=== PATIENT | male | born 1975 | race African-American/Black ===

== ENCOUNTER 2016-07-14 16:40 | Emergency (ER) | payer OTHER ==
[~2016-07-14] VITALS: Ht 185.4 cm; Wt 131.6 kg
[2016-07-14 16:46] VITALS: TEMP 37.6; Ht 185.4 cm; Wt 131.6 kg
[2016-07-14] MEDS ORDERED: FLEC100T21 PO (17:03)
[2016-07-14] MEDS ORDERED: METO25TA56 PO (17:03)
[2016-07-14] MEDS ORDERED: CLR10 PO (17:03)
[2016-07-14] MEDS ORDERED: CHOL1CAP67 PO (17:03)
[2016-07-14] MEDS ORDERED: FAMO40TA6 PO (17:03)
[2016-07-14] MEDS ORDERED: IBUP-1050 PO (17:03)
--- NOTE | 2016-07-14 17:08 | EMERGENCY ROOM VISIT NOTE ---
History Report prepared by Dayana: Sid Ribeiro Under the Supervision of: Dr. Sarah Jain M.D. First contact with patient: 16:43 Chief Complaint: KNEEPAIN Stated Complaint: R KNEE PAIN INJURY History of Present Illness The patient is a 40 year old male who presents to the Emergency Room with complaints of sudden left knee pain occurring last night. The patient currently rates his discomfort as a 1/10 in severity. The patient states that he was going up the stairs, and he twisted his leg on the first step. The patient states that he twisted his knee, and it buckled under him. He states that he fell backwards and hit his back. Source of History: patient Onset: last night Position: knee (left) Symptom Intensity: 110 Timing: other Review of Systems See HPI for pertinent positives & negatives. A total of 6 systems reviewed and were otherwise negative. Past Medical & Surgical Atrial fibrillation Obstructive sleep apnea Social History Smoking Status: Never Smoker Marital Status: Housing Status: lives with family Occupation Status: employed Current/Historical Medications Scheduled Cholecalciferol (Vitamin D-3), 1 TAB PO DAILY Flecainide (Tambocor), 100 MG PO BID Metoprolol Tartrate (Lopressor) (Lopressor), 25 MG PO BID Scheduled PRN Famotidine (Pepcid), 40 MG PO DAILY PRN for Heartburn Hydrocodone/Acetaminophen 5MG/325MG (Rogers 5MG/325MG), 1-2 TABLETS PO Q6 PRN for Pain Ibuprofen (Advil), 400-600 MG PO Q6H PRN for Pain Loratadine (Claritin), 10 MG PO DAILY PRN for PRN Allergies Coded Allergies: No Known Allergies (Unverified , 07/14/16) Physical Exam Vital Signs Date Time Temp Pulse Resp B/P Pulse Ox O2 Delivery O2 Flow Rate FiO2 07/14/16 19:38 71 20 142/85 100 07/14/16 16:46 37.6 79 18 139/80 95 Room Air Physical Exam Vital signs reviewed. General: Well-appearing male, in no significant distress. Musculoskeletal: Large left knee effusion. No instability, laxity, or pain to valgus or varus stress. Negative anterior drawer. Neurologic: Patient awake alert and oriented x 3 Skin: Warm, dry, no rash Medical Decision & Procedures ER Provider Diagnostic Interpretation: MRI results as stated below per my review and radiologist interpretation: MRI OF THE LEFT KNEE WITHOUT CONTRAST CLINICAL HISTORY: Left knee swelling. Pivot injury yesterday. COMPARISON STUDY: None TECHNIQUE: Utilizing a 1.5 Sara magnet and dedicated coil, multiplanar, multiecho imaging of the left knee was performed without intravenous or intraarticular contrast. FINDINGS: There is a large left knee joint effusion with suspected lipohemarthrosis. Note is made of extensive edema within the lateral femoral condyle with an associated subchondral fracture with displacement of multiple osteochondral fragments. Note is made of 2 fragments anterior to the medial joint space that measure up to 1.4 cm. There is also a fragment along the medial aspect of the posterior cruciate ligament that measures 0.8 cm. There is a 1 cm fragment along the inferomedial aspect the patella that likely arises from the patella. The cruciate and collateral ligaments are intact. The medial meniscus, particularly the anterior horn, is diminutive but no meniscal tear is identified. There is a full-thickness defect within the lateral patellar cartilage that measures 1.1 cm in transverse dimension. There is no significant cartilage abnormality within the medial compartment. The medial retinaculum is attenuated and somewhat redundant. IMPRESSION: 1. Large left knee joint effusion with lipohemarthrosis. Extensive edema of the lateral femoral condyle with associated osteochondral injury with fracture and multiple displaced fragments within the joint space, as described above. In addition, there is osteochondral injury of the inferomedial aspect the patella and the lateral patellar cartilage. These findings suggest a recent lateral patellar dislocation and subsequent reduction. Attenuated medial retinaculum which is somewhat redundant. 2. Intact cruciate and collateral ligaments. 3. No meniscal tear. The anterior horn of the medial meniscus is diminutive but no tear is identified. Electronically signed by: Steve Leon M.D. 07/14/2016 6:46 PM Dictated Date/Time: 07/14/2016 6:28 PM Medications Administered Medications (Trade) Dose Ordered Sig/Taylor Route Start Time Stop Time Status Last Admin Dose Admin Acetaminophen/ Hydrocodone Bitart (Rogers 5/325mg Home Pack) 1 homepack UD ONCE PO 07/14/16 19:15 07/14/16 19:16 DC 07/14/16 19:17 1 HOMEPACK ED Course 1643: Past medical records reviewed. The patient was evaluated in room D5. A complete history and physical examination was performed. 1845: Buffered Lidocaine 1% Inj 20ml INFIL 1909: Upon reevaluation, the patient appeared to have improvement of his symptoms. I discussed findings with him. He verbalized agreement of the treatment plan. He was discharged home. 1914: Rogers 5/325mg 1 homepack PO Medical Decision Differential diagnosis: Etiologies such as fracture, dislocation, neurovascular compromise, compartment syndrome, soft tissue injury, as well as others were entertained. This patient was evaluated and appeared to be in no significant distress. Physical examination reveals a large left knee effusion. There is no appreciable laxity on exam. The patient has been ambulating on the leg today with a knee brace. He complains of moderate discomfort. MRI of the knee was performed to rule out soft tissue injury. The study is read as above and is concerning for a lateral femoral condyle fracture. Joint aspiration was performed at the bedside with approximately 60 mL of a dark blood return. I did speak with Dr. Talavera orthopedic surgery regarding the findings. He has recommended a knee immobilizer, nonweightbearing status and crutches. He will evaluate the patient first thing in the morning in the office. Patient is aware of the plan and agrees. His given a Rogers home pack as well as a prescription. He will ice and elevate as much as possible and return to the ER for worsening of symptoms or any medical concerns. Impression Primary Impression: Fracture of lateral condyle of femur Additional Impressions: Hemarthrosis, Cartilage tear Scribe Attestation The scribe's documentation has been prepared under my direction and personally reviewed by me in its entirety. I confirm that the note above accurately reflects all work, treatment, procedures, and medical decision making performed by me. Departure Information Dispostion Home / Self-Care Prescriptions Hydrocodone/Acetaminophen 5MG/325MG (Rogers 5MG/325MG) Tab 1-2 TABLETS PO Q6 Y for Pain, #30 TAB PRN PAIN Prov: Sarah Jain M.D. 07/14/16 Referrals RV. Sutton MD (PCP) Forms HOME CARE DOCUMENTATION FORM, IMPORTANT VISIT INFORMATION Patient Instructions A Signature Page, My [facility] Additional Instructions Diagnosis: Fracture of the lateral femoral condyle, patellar cartilage tear, hemarthrosis Knee immobilizer, ice and elevate as frequently as possible. Remain nonweightbearing on the left leg. Go to Dr. Talavera's office at 8:00 am for follow-up evaluation. Rogers one to 2 tabs every 6 hours as needed for pain. Do not drive or take Tylenol with this medication. Return to the emergency department for worsening of symptoms or any medical concerns.
[2016-07-14] MEDS ORDERED: XYLOCAINE 1%/SOD BICARB 20 ML VIAL INFIL ONE (18:45)
--- NOTE | 2016-07-14 18:48 | DIAGNOSTIC IMAGING REPORT ---
MRI OF THE LEFT KNEE WITHOUT CONTRAST CLINICAL HISTORY: Left knee swelling. Pivot injury yesterday. COMPARISON STUDY: None TECHNIQUE: Utilizing a 1.5 Sara magnet and dedicated coil, multiplanar, multiecho imaging of the left knee was performed without intravenous or intraarticular contrast. FINDINGS: There is a large left knee joint effusion with suspected lipohemarthrosis. Note is made of extensive edema within the lateral femoral condyle with an associated subchondral fracture with displacement of multiple osteochondral fragments. Note is made of 2 fragments anterior to the medial joint space that measure up to 1.4 cm. There is also a fragment along the medial aspect of the posterior cruciate ligament that measures 0.8 cm. There is a 1 cm fragment along the inferomedial aspect the patella that likely arises from the patella. The cruciate and collateral ligaments are intact. The medial meniscus, particularly the anterior horn, is diminutive but no meniscal tear is identified. There is a full-thickness defect within the lateral patellar cartilage that measures 1.1 cm in transverse dimension. There is no significant cartilage abnormality within the medial compartment. The medial retinaculum is attenuated and somewhat redundant. IMPRESSION: 1. Large left knee joint effusion with lipohemarthrosis. Extensive edema of the lateral femoral condyle with associated osteochondral injury with fracture and multiple displaced fragments within the joint space, as described above. In addition, there is osteochondral injury of the inferomedial aspect the patella and the lateral patellar cartilage. These findings suggest a recent lateral patellar dislocation and subsequent reduction. Attenuated medial retinaculum which is somewhat redundant. 2. Intact cruciate and collateral ligaments. 3. No meniscal tear. The anterior horn of the medial meniscus is diminutive but no tear is identified. Electronically signed by: Steve Leon M.D. 07/14/2016 6:46 PM Dictated Date/Time: 07/14/2016 6:28 PM
[2016-07-14] MEDS ORDERED: HYDR-5688 PO (19:12)
[2016-07-14] MEDS ORDERED: NORCO 5/325MG HOME PACK PO ONE (19:15)
[2016-07-14 19:38] VITALS: BP 142/85; PULSE 71; O2SAT 100
--- NOTE | 2016-07-17 12:33 | EDITING REQUIRED CODING QUERY ---
CODING QUERY To promote full compliance with coding requirements relating to patient care, provider participation is requested in all cases of ink grinder uncertainty. Please assist us with the question(s) below: Coding Question(s): There is documentation on the H&P of that Dr. Talavera was contacted and recommended a knee immobilizer. The H&P also documents that the patient has been ambulating on the leg today with a knee brace. There is an order for an immobilizer to be applied, however, there is no documentation on the H&P or in EMR showing that a knee immobilizer was placed. Please clarify below. ( ) Knee Immobilizer was not placed during this visit - the patient had an existing knee brace ( ) Knee Immobilizer was placed during this visit - Please specify the side below. (x ) Left side ( ) Right side ( ) Other: Specify Physician's Response(s): Thank you Rylee Chase Principal Diagnosis: "_that condition established after study, to be chiefly responsible for occasioning the admission of the patient to the hospital for care." Co-Existing Principal Diagnosis: "_when two or more diagnoses equally meet the criteria for principal diagnosis as determined by the circumstances of admission, diagnostic work up, and/or therapy provided, and the Alphabetic Index, Tabular List, or another coding guideline does not provide sequencing direction, any one of the diagnoses may be sequenced first." "When the physician has documented what appears to be a current diagnosis in the body of the record, but has not included the diagnosis in the final diagnostic statement, the physician should be asked whether the diagnosis should be added." (Source Coding [facility] 2 QTR90. p3-4)
== END 2016-07-14 19:39 | disposition home or self-care (01) ==
LOC: C.EDB 16:42 → C.EDD 19:39
DX: S72.422A Displaced fracture of lateral condyle of left femur, initial encounter for closed fracture (principal); I48.91 Unspecified atrial fibrillation; Z79.899 Other long term (current) drug therapy; W10.9XXA Fall (on) (from) unspecified stairs and steps, initial encounter; Y99.8 Other external cause status

== ENCOUNTER → 2017-09-18 | Outpatient (CLI) | payer OTHER ==
[~2017-09-18] MED LIST: CHOL1CAP67 PO; CLR10 PO; FAMO40TA6 PO; FLEC100T21 PO; IBUP-1050 PO; METO25TA56 PO
[2017-09-18 09:34] LABS: BASO % 0.2 %; BASO ABS # 0.01 K/uL (0-0.2); EOS % 0.5 %; EOS ABS # 0.03 K/uL (0-0.5); HEMATOCRIT 43.4 % (42-52); HEMOGLOBIN 15.3 g/dL (14.0-18.0); IG# 0.01 K/uL (0.00-0.02); LYMPH % 25.2 %; MEAN CELL VOLUME 93.1 fL (80-100); MEAN CORPUSCULAR HEMOGLOBIN 32.8 pg (25-34); MEAN CORPUSCULAR HGB CONC 35.3 g/dl (32-36); MONO ABS # 0.51 K/uL (0.11-0.59); NEUT % 65.9 %; NEUT ABS # 4.19 K/uL (1.4-6.5); PLATELET COUNT 210 K/uL (130-400); RED CELL DISTRIBUTION WIDTH CV 11.8 % (11.5-14.5); RED CELL DISTRIBUTION WIDTH SD 39.5 fL (36.4-46.3); WHITE BLOOD COUNT 6.35 K/uL (4.8-10.8)
[2017-09-18 10:29] LABS: ALBUMIN 4.3 gm/dl (3.4-5.0); ALT/SGPT 27 U/L (12-78); BLOOD UREA NITROGEN 17 mg/dl (7-18); CARBON DIOXIDE 27 mmol/L (21-32); CHOLESTEROL 171 mg/dl (0-200); CREATININE 1.14 mg/dl (0.60-1.40); GLUCOSE 110 mg/dl (70-99); POTASSIUM 4.3 mmol/L (3.5-5.1); SODIUM 140 mmol/L (136-145)
[2017-09-18 10:45] LABS: ALKALINE PHOSPHATASE 59 U/L (45-117); AST/SGOT 16 U/L (15-37); LDL CHOLESTEROL CALCULATED 102 mg/dl; TOTAL PROTEIN 7.6 gm/dl (6.4-8.2)
== END | disposition home or self-care (01) ==
LOC: C.LAB 08:01
PROVIDERS: ATTEND Internal Medicine
DX: I48.91 Unspecified atrial fibrillation (principal); E55.9 Vitamin D deficiency, unspecified; Z13.220 Encounter for screening for lipoid disorders

== ENCOUNTER → 2017-11-04 | Outpatient (CLI) | payer OTHER | END | disposition home or self-care (01) | LOC: C.MAMM 08:05 | PROVIDERS: ATTEND Internal Medicine | DX: M85.80 Other specified disorders of bone density and structure, unspecified site (principal); Z82.62 Family history of osteoporosis; Z82.69 Family history of other diseases of the musculoskeletal system and connective tissue ==